=== PATIENT | male | born 1950 | race Caucasian/White ===

== ENCOUNTER 2019-04-09 12:34 | Emergency (ER) | payer OTHER ==
[~2019-04-09] VITALS: Ht 172.7 cm; Wt 91.8 kg
[2019-04-09 12:57] VITALS: TEMP 97.5
[2019-04-09] MEDS ORDERED: PRADAXA75 MG (13:43)
[2019-04-09] MEDS ORDERED: GLUCOPHAGE500 MG/TAB (13:44)
[2019-04-09] MEDS ORDERED: DOXYCYCLINE 10100 MG PO (14:34)
[2019-04-09] MEDS ORDERED: CEPHALEXIN500 M1 PO (14:34)
[2019-04-09 14:40] VITALS: BP 156/74; PULSE 74
== END 2019-04-09 14:46 | disposition home or self-care (01) ==
LOC: COL.ER 12:34
DX: L03.116 Cellulitis of left lower limb (principal); I48.91 Unspecified atrial fibrillation; I10 Essential (primary) hypertension; E11.9 Type 2 diabetes mellitus without complications; Z79.84 Long term (current) use of oral hypoglycemic drugs; Z90.89 Acquired absence of other organs; Z87.891 Personal history of nicotine dependence